=== PATIENT | female | born 1985 | race Caucasian/White ===

== ENCOUNTER 2017-08-22 21:01 | Emergency (ER) | payer OTHER ==
--- NOTE | 2017-08-22 23:05 | OBHP ---
Datetime: 08/22/2017 21:42 IP Adm Impression: , intrauterine IP Admit Plan: Observation/Evaluation; Discharge home Admit Comment, IP Provider: Patient is IUP 22 weeks c/o RLQ pain since this morning radiated to her back, better when she lie down on bed, worse with movements. Denies nausea, vomiting, fever, diarrhea, no urinary symptoms, no LOF,VB, or ctx. PNC: Dr Santoyo. PObH: miscarriage x1 2016. PMH: denies. PSH: none FMH: none NKDA. Meds: PNV SH: -etoh, tobacco, drugs. VS: wnl FHR: 150 by doppler. A/P: IUP 22 weeks. - Round ligament Pain. Obs Bedside US wnl. Discharge to home f/u appt with Dr Santoyo in 2 weeks. Case discused with Dr Becky Villegas PGY 1. Pt seen and examined with resident and I agree with the above. Pelvic Type - PN: Adequate Extremities - PN: Normal Abdomen - PN: Normal Back - PN: Normal Breast - PN: Not Done Lungs - PN: Normal Heart - PN: Normal Thyroid - PN: Normal Neurologic - PN: Normal HEENT - PN: Normal General - PN: Normal FHR - Baseline A Provider: 150 Contraction Comments Provider: none EGA AdmitDate IP: 21.5 Vital Signs Provider: Reviewed; Within Normal Limits IP Chief Complaint: Maternal discomfort Genitourinary Exam: Not Done DTRs - PN: Not Done
[2017-08-23 07:22] VITALS: BP 101/57; PULSE 60; TEMP 98
== END 2017-08-22 22:35 | disposition home or self-care (01) ==
LOC: H.EROB2 21:01
DX: O26.93 Pregnancy related conditions, unspecified, third trimester (principal); R10.2 Pelvic and perineal pain; Z3A.22 22 weeks gestation of pregnancy